=== PATIENT | male | born 1950 | race Caucasian/White ===

== ENCOUNTER 2017-09-01 17:11 | Inpatient (IN) | payer MEDICARE ==
[~2017-09-01] VITALS: Ht 170.2 cm; Wt 61.2 kg
[2017-09-01 17:17] VITALS: BP 197/123
[2017-09-01] MEDS: Albuterol ud Inhalation HHN SCH ×7 (17:29→20:56)
[2017-09-01] MEDS: Ipratropium 0.02% Inh Soln 2.5ml UD HHN SCH ×3 (17:29→18:01)
[2017-09-01] MEDS ORDERED: Azithromycin 500 MG in NS 275 ML IV ONE (17:30)
[2017-09-01] MEDS ORDERED: Solu-MEDROL 125mg Inj IVP ONE (17:30)
--- NOTE | 2017-09-01 17:30 | Emergency Room Report ---
History of Present Illness General Chief Complaint: Dyspnea/Respdistress Source: Patient Present Illness HPI 67-year-old male with history of COPD, former smoker, p/w SOB for 2 days. SOB occurs both at rest and on exertion. + productive cough with sputum, Denies chest pain. Patient has been using albuterol inhaler every 4 hours. With minimal relief Patient does not have nebulizer at home. No recent steroid use. Pt states that this episode is similar to other episodes of COPD exacerbation. Denies fever, chills. Denies sick contacts or recent travel. Patient denies history of ICU admissions, intubations States that the last time he went to the emergency room for a COPD exacerbation was one year ago Allergies: Coded Allergies: IODINE (Verified Allergy, Severe, ANAPHYLAXIS, 09/01/17) Patient History Past Medical History: see triage record Past Surgical History: none Pertinent Family History: none Reviewed Nursing Documentation: PMH: Agreed, PSxH: Agreed Review of Systems All Other Systems: negative except mentioned in HPI Physical Exam Vital Signs Date Time Temp Pulse Resp B/P (MAP) Pulse Ox O2 Delivery O2 Flow Rate FiO2 09/01/17 17:07 98.2 110 20 197/123 97 Room Air Sp02 EP Interpretation: reviewed, normal General Appearance: alert, GCS 15, non-toxic, moderate distress, other - sob but speaking in complete sentences Head: normocephalic, atraumatic Eyes: bilateral eye normal inspection, bilateral eye PERRL, bilateral eye EOMI ENT: normal ENT inspection, normal pharynx, normal voice, moist mucus membranes Neck: normal inspection, full range of motion, supple Respiratory: other - +insp and exp wheezing, tachypneic, Cardiovascular #1: normal inspection, regular rate, rhythm, no edema, normal capillary refill Cardiovascular #2: 2+ radial (R), 2+ radial (L) Gastrointestinal: normal inspection, non tender, soft, non-distended, no guarding Musculoskeletal: normal inspection, back normal, normal range of motion, non- tender Neurologic: normal inspection, alert, oriented x3, responsive, motor strength/ tone normal, sensory intact, normal gait, speech normal Psychiatric: normal inspection, judgement/insight normal, memory normal Skin: normal inspection, normal color, no rash, warm/dry, well hydrated, normal turgor Procedures Critical Care Time Critical Care Time 40 minutes of CC time 67-year-old male COPD exacerbation VS: Tachypnea Airway patent. PLAN: IV access, labs, lactate, troponin, meds, steroids, magnesium, consider BiPAP Anticipate admission to Tele vs. ERICA CC time also includes review of labs, review of EMR, discussion with family and paperwork from SNF, d/w hospitalist CC could include dosing of pressors, additional Abx CC time does not include procedures Medical Decision Making Diagnostic Impression: Primary Impression: COPD exacerbation Additional Impression: Respiratory distress ER Course 67-year-old male with pmhx of COPD p/w SOB for 2 days. DDX: COPD exacerbation, ACS, pneumonia Plan: IV access, cardiac cath lab manager, O2 nasal cannula, EKG, CXR obtain basic labs including blood gas, troponin Duonebs, steroids, consider mag Will consider BIPAP for persistent or worsening respiratory status ER Course: Patient's respiratory status has been closely monitored in the ED. Patient has been treated with combivent x 3, steroids, antibiotics. IV mag sulfate CXR reveals no acute infiltrate Repeat lung auscultation reveals persistent wheezing. Patent's remains tachypneic and hypoxic on room air. Disposition: Patient will be admitted to telemetry D/W hospitalist Dr Gore who has accepted patient for admission Please note that this Emergency Department Report was dictated using [employer] technology software, occasionally this can lead to erroneous entry secondary to interpretation by the dictation equipment. EKG Diagnostic Results EP Interpretation: Yes Rate: Tachycardic Rhythm: NSR ST Segments: Rightward axis, no acute ST-T changes ASA given to patient: no Rhythm Strip EP Interpretation: Yes Rate: 100 Rhythm: NSR, no PVCs, no ectopy Chest X-ray CXR: Ordered: Yes 1 view Indication: Shortness of breath EP interpretation: Yes Interpretation: Hyperinflated lungs, no infiltrate Impression: COPD Electronically signed by Jolynn Hayes MD Laboratory Tests Test 09/01/17 17:20 White Blood Count 8.3 K/UL (4.8-10.8) Red Blood Count 5.60 M/UL (4.70-6.10) Hemoglobin 16.5 G/DL (14.2-18.0) Hematocrit 52.1 % (42.0-52.0) H Mean Corpuscular Volume 93 FL (80-99) Mean Corpuscular Hemoglobin 29.4 PG (27.0-31.0) Mean Corpuscular Hemoglobin Concent 31.6 G/DL (32.0-36.0) L Red Cell Distribution Width 11.8 % (11.6-14.8) Platelet Count 164 K/UL (150-450) Mean Platelet Volume 9.3 FL (6.5-10.1) Neutrophils (%) (Auto) 80.5 % (45.0-75.0) H Lymphocytes (%) (Auto) 13.9 % (20.0-45.0) L Monocytes (%) (Auto) 4.7 % (1.0-10.0) Eosinophils (%) (Auto) 0.3 % (0.0-3.0) Basophils (%) (Auto) 0.7 % (0.0-2.0) Sodium Level 135 MMOL/L (136-145) L Potassium Level 3.6 MMOL/L (3.5-5.1) Chloride Level 98 MMOL/L (98-107) Carbon Dioxide Level 25 MMOL/L (21-32) Anion Gap 12 mmol/L (5-15) Blood Urea Nitrogen 10 mg/dL (7-18) Creatinine 1.1 MG/DL (0.55-1.30) Estimate Glomerular Filtration Rate > 60 mL/min (>60) Glucose Level 103 MG/DL (74-106) Lactic Acid Level 2.20 mmol/L (0.66-2.22) Calcium Level 9.3 MG/DL (8.5-10.1) Total Bilirubin 0.6 MG/DL (0.2-1.0) Aspartate Amino Transferase (AST) 26 U/L (15-37) Alanine Aminotransferase (ALT) 22 U/L (12-78) Alkaline Phosphatase 101 U/L (46-116) Troponin I 0.000 ng/mL (0.000-0.056) Pro-B-Type Natriuretic Peptide 182 pg/mL (0-125) H Total Protein 8.2 G/DL (6.4-8.2) Albumin 4.2 G/DL (3.4-5.0) Globulin 4.0 g/dL Albumin/Globulin Ratio 1.0 (1.0-2.7) Last Vital Signs Date Time Temp Pulse Resp B/P (MAP) Pulse Ox O2 Delivery O2 Flow Rate FiO2 12/18/17 17:07 98.2 110 20 197/123 97 Room Air Disposition: ADMITTED INPATIENT Condition: Serious Jolynn Hayes M.D. Sep 01, 2017 17:30
[2017-09-01 17:56] LABS: BASOPHILS % (AUTO) 0.7 % (0.0-2.0); EOSINOPHILS % (AUTO) 0.3 % (0.0-3.0); LYMPHOCYTES % (AUTO) 13.9 % (20.0-45.0); MEAN CORPUSCULAR HEMOGLOBIN 29.4 PG (27.0-31.0); MEAN CORPUSCULAR HGB CONC 31.6 G/DL (32.0-36.0); MEAN CORPUSCULAR VOLUME 93 FL (80-99); MEAN PLATELET VOLUME 9.3 FL (6.5-10.1); MONOCYTES % (AUTO) 4.7 % (1.0-10.0); NEUTROPHILS % (AUTO) 80.5 % (45.0-75.0); PLATELET COUNT 164 K/UL (150-450); RED CELL DISTRIBUTION WIDTH 11.8 % (11.6-14.8); WHITE BLOOD COUNT 8.3 K/UL (4.8-10.8)
[2017-09-01 18:00] LABS: ANION GAP 12 mmol/L (5-15); CALCIUM 9.3 MG/DL (8.5-10.1); CARBON DIOXIDE 25 MMOL/L (21-32); CHLORIDE 98 MMOL/L (98-107); CREATININE 1.1 MG/DL (0.55-1.30); GLOMERULAR FILTRATION RATE > 60 mL/min (>60); POTASSIUM 3.6 MMOL/L (3.5-5.1); SODIUM 135 MMOL/L (136-145)
[2017-09-01 18:16] LABS: REFLEX LACTIC ACID YES OR NO YES
[2017-09-01 18:23] LABS: ALANINE AMINOTRANSFERASE 22 U/L (12-78); ASPARTATE AMINO TRANSFERASE 26 U/L (15-37); TOTAL PROTEIN 8.2 G/DL (6.4-8.2)
[2017-09-01] MEDS ORDERED: Azithromycin 500mg Inj IV ONE (18:24)
[2017-09-01] MEDS ORDERED: NS 275 ML ONE (18:28)
[2017-09-01] MEDS ORDERED: ALBUTEROL2.5 MG/3 M INH (18:45)
[2017-09-01] MEDS ORDERED: ASPIR 8181 MG ORAL (19:09)
[2017-09-01 19:10] VITALS: BP 118/67
[2017-09-01 19:25] LABS: ABG PCO2 37.1 mmHg (35.0-45.0)
[2017-09-01 19:26] LABS: ABG ALLEN TEST POSITIVE; ABG BASE EXCESS -3.5
[2017-09-01 20:32] LABS: APPEARANCE,URINE CLEAR; KETONES,URINE 4+ (NEGATIVE); LEUKOCYTE ESTERASE ,URINE NEGATIVE (NEGATIVE); NITRITE,URINE NEGATIVE (NEGATIVE); PH,URINE 5 (4.5-8.0); PROTEIN,URINE 2+ (NEGATIVE); UROBILINOGEN,URINE NORMAL MG/DL (0.0-1.0)
[2017-09-01 20:50] LABS: BACTERIA,URINE FEW /HPF; WBC,URINE 0-2 /HPF (0 - 0)
[2017-09-01 21:27] VITALS: BP 116/69
[2017-09-01] MEDS ORDERED: Zolpidem 5mg tab ORAL PRN (22:00)
[2017-09-01] MEDS ORDERED: Milk of Magnesia 30ml Ud ORAL PRN (22:00)
[2017-09-01] MEDS ORDERED: Morphine Sulfate 4mg/ml Inj IVP PRN (22:00)
[2017-09-01 22:30] VITALS: BP 121/74
[2017-09-02] VITALS: BP_SYST 137; BP_SYST 152; BP_DIAS 73; BP_DIAS 92
[2017-09-02] MEDS: cefTRIAXone 1 GM in D5W 55 ML IV SCH ×2 (01:56→23:31)
[2017-09-02] MEDS: Albuterol/Ipratropium 3ml neb HHN SCH ×7 (02:30→23:43)
[2017-09-02 04:00] VITALS: BP 130/86
[2017-09-02] MEDS ORDERED: Solu-MEDROL 125mg Inj IVP SCH (05:00)
[2017-09-02 08:00] VITALS: BP 144/81
[2017-09-02] MEDS: Aspirin EC 81mg tab ORAL SCH (08:53)
--- NOTE | 2017-09-02 10:54 | History & Physical ---
History and Physical History & Physicial HP dictated # [id number] BEE CONSTANTINO Sep 02, 2017 10:54
[2017-09-02 12:00] VITALS: BP 135/82
[2017-09-02] MEDS: Solu-MEDROL 125mg Inj IVP SCH ×2 (12:09→23:31)
[2017-09-02 16:00] VITALS: BP 135/80
--- NOTE | 2017-09-02 16:15 | History and Physical Report ---
DATE OF ADMISSION: 09/01/2017 CHIEF COMPLAINT: Shortness of breath, cough, and sputum production. HISTORY OF PRESENT ILLNESS: This is a 67-year-old very pleasant white male with history of COPD/emphysema. The patient has long history of smoking. He used to smoke up until 6 months ago, one pack per day and he was smoking for about 50 years. He has usually dyspnea on exertion, however, over the past three days, his shortness of breath has become more. He had also productive cough with sputum and he finally came to the emergency room. The patient was admitted with diagnosis of COPD exacerbation. PAST MEDICAL HISTORY: Negative except what was mentioned, specifically there is no history of diabetes. He has history of hypertension and he denies history of heart disease and GI disease. SOCIAL HISTORY: The patient lives by himself. 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 He denies history of alcohol abuse. Previous history of smoking. ALLERGIES: Shellfish and iodine contrast. REVIEW OF SYSTEMS: As above. PHYSICAL EXAMINATION: GENERAL: The patient is a 67-year-old male, in no acute distress. He is comfortable on O2 via nasal cannula. VITAL SIGNS: Blood pressure is 144/81, pulse 84, and respiratory rate is 20. The patient's temperature is 97.2. HEENT: Deary conjunctivae. Anicteric sclerae. NECK: Supple. LUNGS: Coarse breath sounds bilaterally. I could not appreciate any expiratory wheezing. HEART: S1, S2 without murmurs or rubs. ABDOMEN: Soft, nontender. EXTREMITIES: No cyanosis or edema. LABORATORY FINDINGS: The chemistry panel shows serum sodium 135, potassium 3.6, chloride 98, CO2 25, BUN is 10, creatinine 1.1. CBC shows WBC of 10,300, hematocrit is 52.1, hemoglobin 16.5, platelets 164,000. UA shows 2+ protein. ASSESSMENT: This is a 67-year-old white male who is admitted with chronic obstructive pulmonary disease exacerbation. The patient has also elevated blood pressure, however, his blood pressure is better now. PLAN: The patient will be on bronchodilators, IV steroids, IV antibiotics. Pulmonary consultation will be obtained and adjustment will be made in the patient's regimen. Roney Gore M.D. DR: Tal JOB#: [id number] CC: TAWANA
--- NOTE | 2017-09-02 17:24 | Diagnostic Imaging Report ---
Clinical Indication: Reason For Exam: COPD Technique: Spiral acquisitions obtained through the chest. No IV contrast utilized, referring physician request and due to patient iodine allergy. Multiplanar reconstructions generated. Total dose length product 554.58 mGycm. CTDIvol(s) 14.25 mGy. Dose reduction achieved using automated exposure control Comparison: none Findings: There is generalized pulmonary hyperinflation, consistent with COPD. There is atelectasis and/or scarring at the right lung base. No acute infiltrates, effusions, congestion, masses, or nodules demonstrated. No mediastinal or hilar mass or adenopathy. There are calcified granulomatous right hilar and mediastinal lymph nodes. The heart size is normal. No pericardial effusion. Granulomas calcifications are seen within the liver and spleen. The bones are unremarkable except for degenerative spondylosis changes Impression: COPD changes Right basilar scarring No acute abnormality Evidence old granulomatous disease in the right pulmonary hilum, liver, and spleen The CT scanner at [facility] is accredited by the [employer] and the scans are performed using protocols designed to limit radiation exposure to as low as reasonably achievable to attain images of sufficient resolution adequate for diagnostic evaluation.
--- NOTE | 2017-09-02 17:24 | Diagnostic Imaging Report ---
Indication: Reason For Exam: SOB, asthma Technique: One view of the chest Comparison: none Findings: Lungs are hyperinflated, as in COPD. Lungs and pleural spaces are clear. The heart size is normal. Impression: Evidence of COPD No acute process
[2017-09-02] MEDS ORDERED: Azithromycin 500 MG in D5W 275 ML IV SCH (18:00)
--- NOTE | 2017-09-02 18:15 | Cardiology Report ---
APPROVED REPORT EKG Measurement Heart [id number] NC [id number] [id number] Sinus tachycardia Possible Left atrial enlargement Rightward axis Pulmonary disease pattern Septal infarct, age undetermined Abnormal ECG
[2017-09-02 20:00] VITALS: BP 115/62
--- NOTE | 2017-09-02 20:15 | Consultation ---
DATE OF CONSULTATION: 09/02/2017 PULMONARY CONSULTATION CONSULTING PHYSICIAN: Tahir Liriano M.D. HISTORY OF PRESENT ILLNESS: The patient is a pleasant 67-year-old man, who comes to the hospital through the emergency department from home because of several days of increasing shortness of breath. He reports that he has longstanding asthma and COPD. He was a cigarette smoker, but quit about six months ago. He has had similar flare-ups of COPD in the past. He has been using his inhaler frequently without improvement. He is coughing up some dark sputum and a few days ago coughed up a small amount of blood. PAST MEDICAL HISTORY: COPD and hypertension. He denies any heart disease or gastrointestinal problems. ALLERGIES: Contrast dye, iodine, and shell fish. REVIEW OF SYSTEMS: Otherwise unremarkable. PHYSICAL EXAMINATION: GENERAL: The patient is alert and coughing. VITAL SIGNS: Stable with blood pressure 144/81, yesterday's pressure was as high as 197/123 and as low as 116/69, heart rate was elevated when he presented, but has improved at this time and he is not in distress. HEENT: Head is normocephalic. NECK: No jugular venous distention. CHEST: Decreased air entry and expiratory wheezing. CARDIAC: Rhythm is regular. ABDOMEN: Soft and nontender. Liver and spleen not enlarged. EXTREMITIES: No clubbing, cyanosis, or edema. DIAGNOSTIC DATA: Imaging is not available for review, but reportedly was clear. IMPRESSION: 1. Chronic obstructive pulmonary disease exacerbation. 2. Hypertension. 3. Hemoptysis. PLAN: The patient will be treated with steroids, antibiotics, and nebulizer treatments. We will get a CT scan of the chest without contrast due to his allergies. Thank you for asking me to see him in consultation. Tahir Liriano M.D. : JOVAN JOB#: [id number] CC: Roney Gore M.D.; Fax#: [phone]
[2017-09-03] VITALS: BP_SYST 115; BP_SYST 122; BP_DIAS 62; BP_DIAS 74
[2017-09-03] MEDS: Albuterol/Ipratropium 3ml neb HHN SCH ×7 (03:00→23:51)
[2017-09-03 04:00] VITALS: BP 125/76
[2017-09-03] MEDS: Solu-MEDROL 125mg Inj IVP SCH ×2 (06:47→14:16)
[2017-09-03 08:00] VITALS: BP 122/70
[2017-09-03] MEDS: Aspirin EC 81mg tab ORAL SCH (08:49)
--- NOTE | 2017-09-03 11:46 | General Progress Note ---
Assessment/Plan Problem List: (1) Acute respiratory failure with hypoxemia ICD Codes: J96.01 - Acute respiratory failure with hypoxia SNOMED: 906874828 (2) COPD exacerbation ICD Codes: J44.1 - Chronic obstructive pulmonary disease with (acute) exacerbation SNOMED: 475660139477898 (3) HTN (hypertension) ICD Codes: I10 - Essential (primary) hypertension SNOMED: 34573618 Status Narrative stable Assessment/Plan Bronchodilators IV sterids abxs Transfer to floor Subjective Allergies: Coded Allergies: IODINE (Verified Allergy, Severe, ANAPHYLAXIS, 09/01/17) SHELLFISH DERIVED (Verified Allergy, Severe, Anaphylaxis, 09/01/17) Uncoded Allergies: Contrast Dye (Adverse Reaction, Severe, Anaphylaxis, 09/01/17) Subjective In NAD Objective Last 24 Hour Vital Signs Date Time Temp Pulse Resp B/P (MAP) Pulse Ox O2 Delivery O2 Flow Rate FiO2 09/03/17 11:04 93 18 97 Nasal Cannula 2.0 09/03/17 10:54 92 18 97 Nasal Cannula 2.0 28 09/03/17 07:59 89 20 99 Nasal Cannula 2.0 28 09/03/17 07:48 87 16 94 Nasal Cannula 2.0 28 09/03/17 07:48 94 Nasal Cannula 2.0 28 09/03/17 07:48 Nasal Cannula 2.0 28 09/03/17 05:05 94 18 98 Nasal Cannula 2.0 09/03/17 05:00 93 20 96 Nasal Cannula 2.0 28 09/03/17 04:00 97.3 76 20 125/76 98 Nasal Cannula 09/03/17 04:00 63 09/03/17 03:28 Nasal Cannula 2.0 09/03/17 03:28 Nasal Cannula 2.0 28 09/03/17 00:31 105 09/03/17 00:00 97.7 85 20 122/74 95 Nasal Cannula 09/03/17 00:00 100 09/02/17 23:14 105 20 95 Nasal Cannula 2.0 28 09/02/17 23:00 115 22 93 Nasal Cannula 2.0 28 09/02/17 20:00 98.1 82 20 115/62 94 09/02/17 19:08 101 18 99 Nasal Cannula 2.0 28 09/02/17 19:00 94 Nasal Cannula 2.0 28 09/02/17 19:00 103 18 94 Nasal Cannula 2.0 28 09/02/17 19:00 Nasal Cannula 2.0 28 09/02/17 16:00 95 09/02/17 16:00 97.8 96 18 135/80 96 Nasal Cannula 2.0 09/02/17 15:58 105 20 100 Nasal Cannula 2.0 28 09/02/17 15:50 102 20 98 Nasal Cannula 2.0 28 09/02/17 12:00 97.9 84 18 135/82 96 Nasal Cannula 2.0 09/02/17 12:00 79 09/02/17 11:54 99 20 100 Nasal Cannula 2.0 28 09/02/17 11:44 100 20 98 Nasal Cannula 2.0 28 Intake and Output 09/03/17 09/04/17 19:00 07:00 Intake Total 120 ml Balance 120 ml Intake Oral 120 ml Height (Feet): 5 Height (Inches): 7.00 Weight (Pounds): 135 Cardiovascular: normal rate Respiratory/Chest: lungs clear Edema: no edema noted Generalized BEE CONSTANTINO Sep 03, 2017 11:46
[2017-09-03 12:00] VITALS: BP 132/78
[2017-09-03 16:00] VITALS: BP 130/78
[2017-09-03] MEDS ORDERED: Morphine Sulfate 4mg/ml Inj IVP PRN (18:00)
--- NOTE | 2017-09-03 18:10 | Pulmonology Progress Note ---
Assessment/Plan Assessment/Plan 1. Chronic obstructive pulmonary disease exacerbation. 2. Hypertension. 3. Hemoptysis. CT chest neg doing better taper steroids will follow Subjective Constitutional: Denies: fever Respiratory: Reports: dry cough, shortness of breath - better, Denies: hemoptysis Allergies: Coded Allergies: IODINE (Verified Allergy, Severe, ANAPHYLAXIS, 09/01/17) SHELLFISH DERIVED (Verified Allergy, Severe, Anaphylaxis, 09/01/17) Uncoded Allergies: Contrast Dye (Adverse Reaction, Severe, Anaphylaxis, 09/01/17) Objective Last 24 Hour Vital Signs Date Time Temp Pulse Resp B/P (MAP) Pulse Ox O2 Delivery O2 Flow Rate FiO2 09/03/17 16:00 98.2 105 18 130/78 95 Nasal Cannula 09/03/17 14:50 87 18 99 Nasal Cannula 2.0 28 09/03/17 14:44 86 20 95 Nasal Cannula 2.0 28 09/03/17 12:00 98 09/03/17 12:00 97.9 110 18 132/78 95 Nasal Cannula 2.0 09/03/17 11:04 93 18 97 Nasal Cannula 2.0 09/03/17 10:54 92 18 97 Nasal Cannula 2.0 09/03/17 08:00 97 09/03/17 08:00 97.3 95 18 122/70 95 Nasal Cannula 09/03/17 08:00 91 09/03/17 07:59 89 20 99 Nasal Cannula 2.0 09/03/17 07:48 87 16 94 Nasal Cannula 2.0 09/03/17 07:48 94 Nasal Cannula 2.0 09/03/17 07:48 Nasal Cannula 2.0 09/03/17 05:05 94 18 98 Nasal Cannula 2.0 09/03/17 05:00 93 20 96 Nasal Cannula 2.0 28 09/03/17 04:00 97.3 76 20 125/76 98 Nasal Cannula 09/03/17 04:00 63 09/03/17 03:28 Nasal Cannula 2.0 28 09/03/17 03:28 Nasal Cannula 2.0 28 09/03/17 00:31 105 09/03/17 00:00 97.7 85 20 122/74 95 Nasal Cannula 09/03/17 00:00 100 09/02/17 23:14 105 20 95 Nasal Cannula 2.0 28 09/02/17 23:00 115 22 93 Nasal Cannula 2.0 28 09/02/17 20:00 98.1 82 20 115/62 94 09/02/17 19:08 101 18 99 Nasal Cannula 2.0 28 09/02/17 19:00 94 Nasal Cannula 2.0 28 09/02/17 19:00 103 18 94 Nasal Cannula 2.0 28 09/02/17 19:00 Nasal Cannula 2.0 28 Intake and Output 09/02/17 09/03/17 19:00 07:00 Intake Total 1235 ml 400 ml Output Total 1000 ml 275 ml Balance 235 ml 125 ml Intake Oral 960 ml 400 ml IV Total 275 ml Output Urine Total 1000 ml 275 ml # Voids 1 General Appearance: no acute distress HEENT: atraumatic Respiratory/Chest: lungs clear, decreased breath sounds Cardiovascular: normal rate Microbiology Date/Time Source Procedure Growth Status 09/01/17 17:35 Blood Blood Culture - Preliminary NO GROWTH AFTER 24 HOURS Resulted 09/01/17 17:20 Blood Blood Culture - Preliminary NO GROWTH AFTER 24 HOURS Resulted Current Medications Medications (Trade) Dose Ordered Sig/Heydi Route PRN Reason Start Time Stop Time Status Last Admin Dose Admin Acetaminophen (Tylenol) 650 mg Q4H PRN ORAL Mild Pain (Pain Scale 1-3) 09/03/17 18:00 10/01/17 21:59 Albuterol/ Ipratropium (Albuterol/ Ipratropium) 3 ml Q4HRT HHN 09/03/17 19:00 09/07/17 10:59 Aspirin (Ecotrin) 81 mg DAILY ORAL 09/04/17 09:00 10/02/17 08:59 Azithromycin 500 mg/Dextrose 275 ml @ 275 mls/hr Q24H IV 09/03/17 18:00 09/09/17 17:59 Ceftriaxone Sodium 1 gm/ Dextrose 55 ml @ 110 mls/hr Q24H IV 09/03/17 23:00 09/08/17 22:59 Magnesium Hydroxide (Mom) 30 ml HSPRN PRN ORAL Constipation 09/03/17 22:00 10/01/17 21:59 Methylprednisolone Sodium Succinate (Solu-MEDROL) 60 mg Q8HR IVP 09/03/17 22:00 10/02/17 12:59 Morphine Sulfate (Morphine Sulfate) 4 mg Q4H PRN IVP Severe Pain (Pain Scale 7-10) 09/03/17 18:00 09/08/17 21:59 Ondansetron HCl (Zofran) 4 mg Q6H PRN IVP Nausea & Vomiting 09/03/17 16:00 10/01/17 21:59 Ranitidine HCl (Zantac) 150 mg TWICE A DAY ORAL 09/03/17 18:00 10/01/17 21:59 Zolpidem Tartrate (Ambien) 10 mg HSPRN PRN ORAL Insomnia 09/03/17 22:00 09/08/17 21:59 LAKEISHA MARADIAGA Sep 03, 2017 18:10
[2017-09-03] MEDS: Azithromycin 500 MG in D5W 275 ML IV SCH (18:30)
[2017-09-03 20:00] VITALS: BP 143/96
[2017-09-03] MEDS ORDERED: Zolpidem 5mg tab ORAL PRN (22:00)
[2017-09-03] MEDS ORDERED: Milk of Magnesia 30ml Ud ORAL PRN (22:00)
[2017-09-03] MEDS ORDERED: Solu-MEDROL 125mg Inj IVP SCH (22:00)
[2017-09-03] MEDS: Solu-MEDROL 40mg Inj IVP SCH (22:20)
[2017-09-03] MEDS: cefTRIAXone 1 GM in D5W 55 ML IV SCH (22:20)
[2017-09-04] VITALS: BP 128/65
[2017-09-04] MEDS: Albuterol/Ipratropium 3ml neb HHN SCH ×6 (03:33→23:11)
[2017-09-04 04:00] VITALS: BP 138/83
[2017-09-04 08:00] VITALS: BP 135/86
[2017-09-04] MEDS: Aspirin EC 81mg tab ORAL SCH (09:33)
[2017-09-04] MEDS: Solu-MEDROL 40mg Inj IVP SCH (09:47)
[2017-09-04 12:00] VITALS: BP 160/80
--- NOTE | 2017-09-04 14:28 | General Progress Note ---
Assessment/Plan Problem List: (1) Acute respiratory failure with hypoxemia ICD Codes: J96.01 - Acute respiratory failure with hypoxia SNOMED: 255644700 (2) COPD exacerbation ICD Codes: J44.1 - Chronic obstructive pulmonary disease with (acute) exacerbation SNOMED: 845471119267862 (3) HTN (hypertension) ICD Codes: I10 - Essential (primary) hypertension SNOMED: 55205544 Assessment/Plan Bronchodilators IV sterids abxs start Amlodipine Subjective Allergies: Coded Allergies: IODINE (Verified Allergy, Severe, ANAPHYLAXIS, 09/01/17) SHELLFISH DERIVED (Verified Allergy, Severe, Anaphylaxis, 09/01/17) Uncoded Allergies: Contrast Dye (Adverse Reaction, Severe, Anaphylaxis, 09/01/17) Subjective In NAD Objective Last 24 Hour Vital Signs Date Time Temp Pulse Resp B/P (MAP) Pulse Ox O2 Delivery O2 Flow Rate FiO2 09/04/17 13:29 88 18 98 Room Air 09/04/17 12:00 98.3 75 20 160/80 98 09/04/17 11:12 79 17 95 Room Air 2.0 28 09/04/17 08:00 97.3 95 19 135/86 92 09/04/17 07:48 86 18 99 Room Air 09/04/17 07:41 Nasal Cannula 2.0 28 09/04/17 07:41 95 Nasal Cannula 2.0 28 09/04/17 07:38 77 17 95 Room Air 2.0 28 09/04/17 04:01 Room Air 09/04/17 04:00 97.5 81 18 138/83 97 09/04/17 03:44 83 18 98 Room Air 09/04/17 03:33 81 18 93 Room Air 09/04/17 00:01 Room Air 09/04/17 00:00 97.5 76 19 128/65 93 09/03/17 23:58 77 18 99 Room Air 09/03/17 23:51 72 18 93 Room Air 09/03/17 21:42 87 18 98 Room Air 09/03/17 21:32 Nasal Cannula 2.0 28 09/03/17 21:32 94 Nasal Cannula 2.0 28 09/03/17 21:31 81 20 94 Nasal Cannula 2.0 28 09/03/17 20:01 Room Air 09/03/17 20:00 97.2 87 18 143/96 95 09/03/17 16:00 98.2 105 18 130/78 95 Nasal Cannula 09/03/17 14:50 87 18 99 Nasal Cannula 2.0 28 09/03/17 14:44 86 20 95 Nasal Cannula 2.0 28 Intake and Output 09/03/17 09/04/17 19:00 07:00 Intake Total 660 ml 55 ml Output Total 430 ml 500 ml Balance 230 ml -445 ml Intake Oral 660 ml IV Total 55 ml Output Urine Total 430 ml 500 ml # Voids 3 Height (Feet): 5 Height (Inches): 7.00 Weight (Pounds): 135 Cardiovascular: normal rate Respiratory/Chest: lungs clear Edema: no edema noted Generalized BEE CONSTANTINO Sep 04, 2017 14:28
[2017-09-04 16:00] VITALS: BP 158/87
--- NOTE | 2017-09-04 16:12 | Pulmonology Progress Note ---
Assessment/Plan Assessment/Plan 1. Chronic obstructive pulmonary disease exacerbation. 2. Hypertension. 3. Hemoptysis. BP high likely due to steroids taper steroids, change to PO BP rx improving Subjective Respiratory: Reports: productive cough Allergies: Coded Allergies: IODINE (Verified Allergy, Severe, ANAPHYLAXIS, 09/01/17) SHELLFISH DERIVED (Verified Allergy, Severe, Anaphylaxis, 09/01/17) Uncoded Allergies: Contrast Dye (Adverse Reaction, Severe, Anaphylaxis, 09/01/17) Objective Last 24 Hour Vital Signs Date Time Temp Pulse Resp B/P (MAP) Pulse Ox O2 Delivery O2 Flow Rate FiO2 09/04/17 15:04 105 160/80 09/04/17 14:43 105 18 99 Room Air 09/04/17 14:35 72 18 96 21 09/04/17 13:29 88 18 98 Room Air 09/04/17 12:00 98.3 75 20 160/80 98 09/04/17 11:12 79 17 95 Room Air 2.0 28 09/04/17 08:00 97.3 95 19 135/86 92 09/04/17 07:48 86 18 99 Room Air 09/04/17 07:41 Nasal Cannula 2.0 28 09/04/17 07:41 95 Nasal Cannula 2.0 28 09/04/17 07:38 77 17 95 Room Air 2.0 28 09/04/17 04:01 Room Air 09/04/17 04:00 97.5 81 18 138/83 97 09/04/17 03:44 83 18 98 Room Air 09/04/17 03:33 81 18 93 Room Air 09/04/17 00:01 Room Air 09/04/17 00:00 97.5 76 19 128/65 93 09/03/17 23:58 77 18 99 Room Air 09/03/17 23:51 72 18 93 Room Air 09/03/17 21:42 87 18 98 Room Air 09/03/17 21:32 Nasal Cannula 2.0 28 09/03/17 21:32 94 Nasal Cannula 2.0 28 09/03/17 21:31 81 20 94 Nasal Cannula 2.0 28 09/03/17 20:01 Room Air 09/03/17 20:00 97.2 87 18 143/96 95 Intake and Output 09/03/17 09/04/17 19:00 07:00 Intake Total 660 ml 55 ml Output Total 430 ml 500 ml Balance 230 ml -445 ml Intake Oral 660 ml IV Total 55 ml Output Urine Total 430 ml 500 ml # Voids 3 General Appearance: no acute distress HEENT: atraumatic Respiratory/Chest: rhonchi Cardiovascular: normal rate Microbiology Date/Time Source Procedure Growth Status 09/01/17 17:35 Blood Blood Culture - Preliminary NO GROWTH AFTER 48 HOURS Resulted 09/01/17 17:20 Blood Blood Culture - Preliminary NO GROWTH AFTER 48 HOURS Resulted Current Medications Medications (Trade) Dose Ordered Sig/Heydi Route PRN Reason Start Time Stop Time Status Last Admin Dose Admin Acetaminophen (Tylenol) 650 mg Q4H PRN ORAL Mild Pain (Pain Scale 1-3) 09/03/17 18:00 10/01/17 21:59 Albuterol/ Ipratropium (Albuterol/ Ipratropium) 3 ml Q4HRT HHN 09/03/17 19:00 09/07/17 10:59 09/04/17 14:35 Amlodipine Besylate (Norvasc) 5 mg DAILY ORAL 09/04/17 15:00 10/04/17 14:59 09/04/17 15:04 Aspirin (Ecotrin) 81 mg DAILY ORAL 09/04/17 09:00 10/02/17 08:59 09/04/17 09:33 Azithromycin 500 mg/Dextrose 275 ml @ 275 mls/hr Q24H IV 09/03/17 18:00 09/09/17 17:59 09/03/17 18:30 Ceftriaxone Sodium 1 gm/ Dextrose 55 ml @ 110 mls/hr Q24H IV 09/03/17 23:00 09/08/17 22:59 09/03/17 22:20 Magnesium Hydroxide (Mom) 30 ml HSPRN PRN ORAL Constipation 09/03/17 22:00 10/01/17 21:59 Methylprednisolone Sodium Succinate (Solu-MEDROL) 40 mg Q12H IVP 09/03/17 22:00 10/02/17 12:59 09/04/17 09:47 Morphine Sulfate (Morphine Sulfate) 4 mg Q4H PRN IVP Severe Pain (Pain Scale 7-10) 09/03/17 18:00 09/08/17 21:59 Ondansetron HCl (Zofran) 4 mg Q6H PRN IVP Nausea & Vomiting 09/03/17 16:00 10/01/17 21:59 Ranitidine HCl (Zantac) 150 mg TWICE A DAY ORAL 09/03/17 18:00 10/01/17 21:59 09/04/17 09:33 Zolpidem Tartrate (Ambien) 10 mg HSPRN PRN ORAL Insomnia 09/03/17 22:00 09/08/17 21:59 LAKEISHA MARADIAGA Sep 04, 2017 16:12
[2017-09-04] MEDS ORDERED: Tubing IV Secondary IV ONE (16:18)
[2017-09-04] MEDS ORDERED: D5W 275ml ONE (16:18)
[2017-09-04] MEDS: Azithromycin 500 MG in D5W 275 ML IV SCH (19:04)
[2017-09-04 20:00] VITALS: BP 151/82
[2017-09-04] MEDS: cefTRIAXone 1 GM in D5W 55 ML IV SCH (23:01)
[2017-09-05] VITALS: BP 162/92
[2017-09-05] MEDS: Albuterol/Ipratropium 3ml neb HHN SCH ×6 (02:56→23:37)
[2017-09-05 08:00] VITALS: BP 159/96
[2017-09-05] MEDS: Aspirin EC 81mg tab ORAL SCH (08:38)
--- NOTE | 2017-09-05 09:38 | Pulmonology Progress Note ---
Assessment/Plan Assessment/Plan 1. Chronic obstructive pulmonary disease exacerbation. 2. Hypertension. 3. Hemoptysis. BP high likely due to steroids PO steroids BP rx per Dr Dong improving dc plan Subjective ROS Limited/Unobtainable: Yes Constitutional: Denies: fever Respiratory: Reports: dry cough Allergies: Coded Allergies: IODINE (Verified Allergy, Severe, ANAPHYLAXIS, 09/01/17) SHELLFISH DERIVED (Verified Allergy, Severe, Anaphylaxis, 09/01/17) Uncoded Allergies: Contrast Dye (Adverse Reaction, Severe, Anaphylaxis, 09/01/17) Objective Last 24 Hour Vital Signs Date Time Temp Pulse Resp B/P (MAP) Pulse Ox O2 Delivery O2 Flow Rate FiO2 09/05/17 08:38 98 159/96 09/05/17 08:00 98.0 98 19 159/96 97 09/05/17 07:19 91 20 92 Room Air 09/05/17 07:07 Nasal Cannula 2.0 28 09/05/17 07:06 91 Nasal Cannula 2.0 28 09/05/17 07:06 89 20 91 Nasal Cannula 2.0 28 09/05/17 03:03 97 18 100 Room Air 09/05/17 02:56 92 24 94 Nasal Cannula 2.0 28 09/05/17 00:00 97.6 91 18 162/92 93 Room Air 09/04/17 23:21 94 18 100 Room Air 09/04/17 23:11 87 24 96 Nasal Cannula 2.0 28 09/04/17 20:14 102 18 99 Room Air 09/04/17 20:00 98.9 84 18 151/82 93 Nasal Cannula 2.0 09/04/17 19:50 93 Nasal Cannula 2.0 28 09/04/17 19:50 Nasal Cannula 2.0 28 09/04/17 19:50 96 24 93 Nasal Cannula 2.0 28 09/04/17 16:00 97.7 94 19 158/87 92 09/04/17 15:04 105 160/80 09/04/17 14:43 105 18 99 Room Air 09/04/17 14:35 72 18 96 21 09/04/17 13:29 88 18 98 Room Air 09/04/17 12:00 98.3 75 20 160/80 98 09/04/17 11:12 79 17 95 Room Air 2.0 28 Intake and Output 09/04/17 09/05/17 19:00 07:00 Intake Total 850 ml 875 ml Balance 850 ml 875 ml Intake Oral 850 ml 600 ml IV Total 275 ml # Voids 4 3 General Appearance: no acute distress HEENT: atraumatic, anicteric Respiratory/Chest: rhonchi Cardiovascular: normal rate Current Medications Medications (Trade) Dose Ordered Sig/Heydi Route PRN Reason Start Time Stop Time Status Last Admin Dose Admin Acetaminophen (Tylenol) 650 mg Q4H PRN ORAL Mild Pain (Pain Scale 1-3) 09/03/17 18:00 10/01/17 21:59 Albuterol/ Ipratropium (Albuterol/ Ipratropium) 3 ml Q4HRT HHN 09/03/17 19:00 09/07/17 10:59 09/05/17 07:04 Amlodipine Besylate (Norvasc) 5 mg DAILY ORAL 09/04/17 15:00 10/04/17 14:59 09/05/17 08:38 Aspirin (Ecotrin) 81 mg DAILY ORAL 09/04/17 09:00 10/02/17 08:59 09/05/17 08:38 Azithromycin 500 mg/Dextrose 275 ml @ 275 mls/hr Q24H IV 09/03/17 18:00 09/09/17 17:59 09/04/17 19:04 Ceftriaxone Sodium 1 gm/ Dextrose 55 ml @ 110 mls/hr Q24H IV 09/03/17 23:00 09/08/17 22:59 09/04/17 23:01 Magnesium Hydroxide (Mom) 30 ml HSPRN PRN ORAL Constipation 09/03/17 22:00 10/01/17 21:59 Morphine Sulfate (Morphine Sulfate) 4 mg Q4H PRN IVP Severe Pain (Pain Scale 7-10) 09/03/17 18:00 09/08/17 21:59 Ondansetron HCl (Zofran) 4 mg Q6H PRN IVP Nausea & Vomiting 09/03/17 16:00 10/01/17 21:59 Prednisone (predniSONE) 20 mg Q12HR ORAL 09/04/17 21:00 10/04/17 20:59 09/05/17 08:38 Ranitidine HCl (Zantac) 150 mg TWICE A DAY ORAL 09/03/17 18:00 10/01/17 21:59 09/05/17 08:38 Zolpidem Tartrate (Ambien) 10 mg HSPRN PRN ORAL Insomnia 09/03/17 22:00 09/08/17 21:59 LAKEISHA MARADIAGA Sep 05, 2017 09:38
--- NOTE | 2017-09-05 11:21 | General Progress Note ---
Assessment/Plan Problem List: (1) Acute respiratory failure with hypoxemia ICD Codes: J96.01 - Acute respiratory failure with hypoxia SNOMED: 868132447 (2) COPD exacerbation ICD Codes: J44.1 - Chronic obstructive pulmonary disease with (acute) exacerbation SNOMED: 196290743998259 (3) HTN (hypertension) ICD Codes: I10 - Essential (primary) hypertension SNOMED: 86804302 Assessment/Plan Bronchodilators IV sterids abxs Increase Amlodipine discussed with RN Subjective Allergies: Coded Allergies: IODINE (Verified Allergy, Severe, ANAPHYLAXIS, 09/01/17) SHELLFISH DERIVED (Verified Allergy, Severe, Anaphylaxis, 09/01/17) Uncoded Allergies: Contrast Dye (Adverse Reaction, Severe, Anaphylaxis, 09/01/17) Subjective C/O BELCHER Objective Last 24 Hour Vital Signs Date Time Temp Pulse Resp B/P (MAP) Pulse Ox O2 Delivery O2 Flow Rate FiO2 09/05/17 10:56 98 18 96 Room Air 09/05/17 10:47 94 20 93 Room Air 09/05/17 10:15 94 159/96 09/05/17 08:38 98 159/96 09/05/17 08:00 98.0 98 19 159/96 97 09/05/17 07:19 91 20 92 Room Air 09/05/17 07:07 Nasal Cannula 2.0 09/05/17 07:06 91 Nasal Cannula 2.0 09/05/17 07:06 89 20 91 Nasal Cannula 2.0 09/05/17 03:03 97 18 100 Room Air 09/05/17 02:56 92 24 94 Nasal Cannula 2.0 09/05/17 00:00 97.6 91 18 162/92 93 Room Air 09/04/17 23:21 94 18 100 Room Air 09/04/17 23:11 87 24 96 Nasal Cannula 2.0 09/04/17 20:14 102 18 99 Room Air 09/04/17 20:00 98.9 84 18 151/82 93 Nasal Cannula 2.0 09/04/17 19:50 93 Nasal Cannula 2.0 09/04/17 19:50 Nasal Cannula 2.0 09/04/17 19:50 96 24 93 Nasal Cannula 2.0 09/04/17 16:00 97.7 94 19 158/87 92 09/04/17 15:04 105 160/80 09/04/17 14:43 105 18 99 Room Air 09/04/17 14:35 72 18 96 21 09/04/17 13:29 88 18 98 Room Air 09/04/17 12:00 98.3 75 20 160/80 98 Intake and Output 09/04/17 09/05/17 19:00 07:00 Intake Total 850 ml 875 ml Balance 850 ml 875 ml Intake Oral 850 ml 600 ml IV Total 275 ml # Voids 4 3 Height (Feet): 5 Height (Inches): 7.00 Weight (Pounds): 135 Cardiovascular: normal rate Respiratory/Chest: expiratory wheezing Edema: no edema noted Generalized BEE CONSTANTINO Sep 05, 2017 11:21
[2017-09-05 12:00] VITALS: BP 148/94
[2017-09-05 16:00] VITALS: BP 142/80
[2017-09-05] MEDS ORDERED: Tubing IV Secondary IV ONE (17:16)
[2017-09-05] MEDS: Azithromycin 500 MG in D5W 275 ML IV SCH (17:19)
[2017-09-05 20:00] VITALS: BP 165/89
[2017-09-05] MEDS: cefTRIAXone 1 GM in D5W 55 ML IV SCH (23:15)
[2017-09-06] MEDS: Albuterol/Ipratropium 3ml neb HHN SCH ×6 (03:06→23:40)
[2017-09-06 04:00] VITALS: BP 130/79
[2017-09-06 09:00] VITALS: BP 141/80
[2017-09-06] MEDS: Aspirin EC 81mg tab ORAL SCH (09:03)
[2017-09-06 12:00] VITALS: BP 130/86
--- NOTE | 2017-09-06 14:13 | General Progress Note ---
Assessment/Plan Problem List: (1) Acute respiratory failure with hypoxemia ICD Codes: J96.01 - Acute respiratory failure with hypoxia SNOMED: 681511593 (2) COPD exacerbation ICD Codes: J44.1 - Chronic obstructive pulmonary disease with (acute) exacerbation SNOMED: 907438157982196 (3) HTN (hypertension) ICD Codes: I10 - Essential (primary) hypertension SNOMED: 52650201 Assessment/Plan Bronchodilators Po sterids abxs cont Amlodipine discussed with RN Subjective Allergies: Coded Allergies: IODINE (Verified Allergy, Severe, ANAPHYLAXIS, 09/01/17) SHELLFISH DERIVED (Verified Allergy, Severe, Anaphylaxis, 09/01/17) Uncoded Allergies: Contrast Dye (Adverse Reaction, Severe, Anaphylaxis, 09/01/17) Subjective C/O BELCHER Objective Last 24 Hour Vital Signs Date Time Temp Pulse Resp B/P (MAP) Pulse Ox O2 Delivery O2 Flow Rate FiO2 09/06/17 12:00 97.6 75 20 130/86 98 Room Air 09/06/17 11:14 85 18 92 Room Air 09/06/17 11:07 82 18 92 Room Air 09/06/17 09:07 87 18 92 Room Air 09/06/17 09:03 87 130/79 09/06/17 08:59 Room Air 21 09/06/17 08:59 92 Room Air 09/06/17 08:55 87 18 92 Room Air 09/06/17 04:01 Room Air 09/06/17 04:00 97.5 78 18 130/79 92 09/06/17 03:14 77 18 96 Room Air 09/06/17 03:06 75 18 90 Room Air 09/05/17 23:46 74 18 97 Room Air 09/05/17 23:38 89 20 90 Room Air 09/05/17 20:01 Room Air 09/05/17 20:00 97.5 94 19 165/89 92 09/05/17 19:53 89 18 98 Room Air 09/05/17 19:49 Room Air 09/05/17 19:49 91 Room Air 09/05/17 19:48 87 18 91 Room Air 09/05/17 16:00 98.3 86 20 142/80 99 Room Air 09/05/17 15:08 88 18 91 Room Air 09/05/17 15:08 89 18 91 Room Air Intake and Output 09/05/17 09/06/17 19:00 07:00 Intake Total 960 ml 415 ml Balance 960 ml 415 ml Intake Oral 960 ml 360 ml IV Total 55 ml # Voids 2 3 # Bowel Movements 1 Height (Feet): 5 Height (Inches): 7.00 Weight (Pounds): 135 Cardiovascular: normal rate Respiratory/Chest: expiratory wheezing - better Edema: no edema noted Generalized BEE CONSTANTINO Sep 06, 2017 14:13
[2017-09-06 17:00] VITALS: BP 155/76
[2017-09-06] MEDS: Azithromycin 500 MG in D5W 275 ML IV SCH (18:18)
--- NOTE | 2017-09-06 18:26 | Pulmonology Progress Note ---
Assessment/Plan Assessment/Plan 1. Chronic obstructive pulmonary disease exacerbation. 2. Hypertension. 3. Hemoptysis. PO steroids no change today BP rx per Dr Dong improving abx check ra sat needs pft as out pt needs MDi upon dc dc plan Subjective Constitutional: Reports: no symptoms HEENT: Repors: dysphagia Respiratory: Reports: shortness of breath, wheezing Cardiovascular: Reports: no symptoms Gastrointestinal/Abdominal: Reports: no symptoms Genitourinary: Reports: no symptoms Neurologic: Reports: no symptoms Allergies: Coded Allergies: IODINE (Verified Allergy, Severe, ANAPHYLAXIS, 09/01/17) SHELLFISH DERIVED (Verified Allergy, Severe, Anaphylaxis, 09/01/17) Uncoded Allergies: Contrast Dye (Adverse Reaction, Severe, Anaphylaxis, 09/01/17) Subjective still with some sob on ra no distress oob and worse BELCHER apparent no fever tolerating po Objective Last 24 Hour Vital Signs Date Time Temp Pulse Resp B/P (MAP) Pulse Ox O2 Delivery O2 Flow Rate FiO2 09/06/17 17:00 98.5 89 22 155/76 93 Room Air 09/06/17 15:00 82 18 93 Room Air 09/06/17 14:53 80 18 93 Room Air 09/06/17 12:00 97.6 75 20 130/86 98 Room Air 09/06/17 11:14 85 18 92 Room Air 09/06/17 11:07 82 18 92 Room Air 09/06/17 09:07 87 18 92 Room Air 09/06/17 09:03 87 130/79 09/06/17 09:00 98.0 78 20 141/80 99 Room Air 09/06/17 08:59 Room Air 09/06/17 08:59 92 Room Air 09/06/17 08:55 87 18 92 Room Air 09/06/17 04:01 Room Air 09/06/17 04:00 97.5 78 18 130/79 92 09/06/17 03:14 77 18 96 Room Air 09/06/17 03:06 75 18 90 Room Air 09/05/17 23:46 74 18 97 Room Air 09/05/17 23:38 89 20 90 Room Air 09/05/17 20:01 Room Air 09/05/17 20:00 97.5 94 19 165/89 92 09/05/17 19:53 89 18 98 Room Air 09/05/17 19:49 Room Air 09/05/17 19:49 91 Room Air 09/05/17 19:48 87 18 91 Room Air 21 Intake and Output 09/05/17 09/06/17 19:00 07:00 Intake Total 960 ml 415 ml Balance 960 ml 415 ml Intake Oral 960 ml 360 ml IV Total 55 ml # Voids 2 3 # Bowel Movements 1 General Appearance: WD/WN Respiratory/Chest: rhonchi, expiratory wheezing Cardiovascular: normal rate, regular rhythm Abdomen: soft, non tender, no organomegaly Extremities: no clubbing Neurologic/Psychiatric: no motor/sensory deficits, oriented x 3 Lymphatic: no neck adenopathy Musculoskeletal: normal muscle bulk Current Medications Medications (Trade) Dose Ordered Sig/Heydi Route PRN Reason Start Time Stop Time Status Last Admin Dose Admin Acetaminophen (Tylenol) 650 mg Q4H PRN ORAL Mild Pain (Pain Scale 1-3) 09/03/17 18:00 10/01/17 21:59 Albuterol/ Ipratropium (Albuterol/ Ipratropium) 3 ml Q4HRT HHN 09/03/17 19:00 09/07/17 10:59 09/06/17 14:50 Amlodipine Besylate (Norvasc) 10 mg DAILY ORAL 09/06/17 09:00 10/06/17 08:59 09/06/17 09:03 Aspirin (Ecotrin) 81 mg DAILY ORAL 09/04/17 09:00 10/02/17 08:59 09/06/17 09:03 Azithromycin 500 mg/Dextrose 275 ml @ 275 mls/hr Q24H IV 09/03/17 18:00 09/09/17 17:59 09/06/17 18:18 Ceftriaxone Sodium 1 gm/ Dextrose 55 ml @ 110 mls/hr Q24H IV 09/03/17 23:00 09/08/17 22:59 09/05/17 23:15 Magnesium Hydroxide (Mom) 30 ml HSPRN PRN ORAL Constipation 09/03/17 22:00 10/01/17 21:59 Morphine Sulfate (Morphine Sulfate) 4 mg Q4H PRN IVP Severe Pain (Pain Scale 7-10) 09/03/17 18:00 09/08/17 21:59 Ondansetron HCl (Zofran) 4 mg Q6H PRN IVP Nausea & Vomiting 09/03/17 16:00 10/01/17 21:59 Prednisone (predniSONE) 20 mg Q12HR ORAL 09/04/17 21:00 10/04/17 20:59 09/06/17 09:03 Ranitidine HCl (Zantac) 150 mg TWICE A DAY ORAL 09/03/17 18:00 10/01/17 21:59 09/06/17 18:18 Zolpidem Tartrate (Ambien) 10 mg HSPRN PRN ORAL Insomnia 09/03/17 22:00 09/08/17 21:59 BOBBY LO DO Sep 06, 2017 18:26
[2017-09-06] MEDS: cefTRIAXone 1 GM in D5W 55 ML IV SCH (23:55)
[2017-09-07 01:00] VITALS: BP 153/93
[2017-09-07] MEDS: Albuterol/Ipratropium 3ml neb HHN SCH ×5 (02:53→23:10)
[2017-09-07 04:00] VITALS: BP 149/86
[2017-09-07 08:00] VITALS: BP 131/74
[2017-09-07] MEDS: Aspirin EC 81mg tab ORAL SCH (08:19)
[2017-09-07] MEDS ORDERED: NS 275ml ONE (10:14)
[2017-09-07] MEDS ORDERED: Tubing IV Secondary IV ONE (10:14)
--- NOTE | 2017-09-07 15:13 | Pulmonology Progress Note ---
Assessment/Plan Assessment/Plan 1. Chronic obstructive pulmonary disease exacerbation. 2. Hypertension. 3. Hemoptysis. PO steroids no change today, reassess in am BP rx per Dr Dong improving abx check ra sat, humidify o2 if needed needs pft as out pt needs MDi upon dc dc plan Subjective Constitutional: Reports: no symptoms HEENT: Repors: no symptoms Respiratory: Reports: productive cough Cardiovascular: Reports: no symptoms Gastrointestinal/Abdominal: Reports: no symptoms Genitourinary: Reports: no symptoms Allergies: Coded Allergies: IODINE (Verified Allergy, Severe, ANAPHYLAXIS, 09/01/17) SHELLFISH DERIVED (Verified Allergy, Severe, Anaphylaxis, 09/01/17) Uncoded Allergies: Contrast Dye (Adverse Reaction, Severe, Anaphylaxis, 09/01/17) Subjective still with some sob on nc afternoon, was on RA yesterday no distress oob and worse BELCHER apparent no fever tolerating po Objective Last 24 Hour Vital Signs Date Time Temp Pulse Resp B/P (MAP) Pulse Ox O2 Delivery O2 Flow Rate FiO2 09/07/17 15:05 86 22 91 Nasal Cannula 2.0 09/07/17 08:19 84 131/74 09/07/17 08:00 97.9 84 17 131/74 97 09/07/17 07:51 91 20 98 Room Air 21 09/07/17 07:42 Room Air 09/07/17 07:41 98 20 91 Room Air 21 09/07/17 07:41 91 Room Air 21 09/07/17 07:39 98 20 Room Air 21 09/07/17 04:00 97.9 85 20 149/86 95 09/07/17 03:02 75 22 95 Room Air 21 09/07/17 02:56 21 09/07/17 02:56 75 22 93 Room Air 21 09/07/17 02:53 75 22 93 Room Air 21 09/07/17 01:00 97.4 87 18 153/93 94 09/06/17 23:44 89 22 95 Room Air 21 09/06/17 23:43 21 09/06/17 23:42 89 22 95 Room Air 21 09/06/17 20:14 89 22 95 Nasal Cannula 2.0 28 09/06/17 20:06 89 22 95 Nasal Cannula 2.0 09/06/17 20:06 28 09/06/17 20:05 93 Nasal Cannula 2.0 28 09/06/17 20:05 Nasal Cannula 2.0 28 09/06/17 17:00 98.5 89 22 155/76 93 Room Air Intake and Output 09/06/17 09/07/17 19:00 07:00 Intake Total 3160 ml Balance 3160 ml Intake Oral 3160 ml # Voids 2 3 # Bowel Movements 1 1 General Appearance: cachetic Respiratory/Chest: rhonchi - scant Cardiovascular: normal rate, regular rhythm Abdomen: soft, non tender, no organomegaly Skin: no lesions 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 normal, alert, oriented x 3 Current Medications Medications (Trade) Dose Ordered Sig/Heydi Route PRN Reason Start Time Stop Time Status Last Admin Dose Admin Acetaminophen (Tylenol) 650 mg Q4H PRN ORAL Mild Pain (Pain Scale 1-3) 09/03/17 18:00 10/01/17 21:59 Albuterol/ Ipratropium (Albuterol/ Ipratropium) 3 ml Q4HRT HHN 09/07/17 15:00 09/12/17 14:59 09/07/17 15:05 Amlodipine Besylate (Norvasc) 10 mg DAILY ORAL 09/06/17 09:00 10/06/17 08:59 09/07/17 08:19 Aspirin (Ecotrin) 81 mg DAILY ORAL 09/04/17 09:00 10/02/17 08:59 09/07/17 08:19 Azithromycin 500 mg/Dextrose 275 ml @ 275 mls/hr Q24H IV 09/03/17 18:00 09/09/17 17:59 09/06/17 18:18 Ceftriaxone Sodium 1 gm/ Dextrose 55 ml @ 110 mls/hr Q24H IV 09/03/17 23:00 09/08/17 22:59 09/06/17 23:55 Magnesium Hydroxide (Mom) 30 ml HSPRN PRN ORAL Constipation 09/03/17 22:00 10/01/17 21:59 Morphine Sulfate (Morphine Sulfate) 4 mg Q4H PRN IVP Severe Pain (Pain Scale 7-10) 09/03/17 18:00 09/08/17 21:59 Ondansetron HCl (Zofran) 4 mg Q6H PRN IVP Nausea & Vomiting 09/03/17 16:00 10/01/17 21:59 Prednisone (predniSONE) 20 mg Q12HR ORAL 09/04/17 21:00 10/04/17 20:59 09/07/17 08:19 Ranitidine HCl (Zantac) 150 mg TWICE A DAY ORAL 09/03/17 18:00 10/01/17 21:59 09/07/17 08:19 Zolpidem Tartrate (Ambien) 10 mg HSPRN PRN ORAL Insomnia 09/03/17 22:00 09/08/17 21:59 Current Medications Medications (Trade) Dose Ordered Sig/Heydi Route PRN Reason Start Time Stop Time Status Last Admin Dose Admin Acetaminophen (Tylenol) 650 mg Q4H PRN ORAL Mild Pain (Pain Scale 1-3) 09/03/17 18:00 10/01/17 21:59 Albuterol/ Ipratropium (Albuterol/ Ipratropium) 3 ml Q4HRT HHN 09/07/17 15:00 09/12/17 14:59 09/07/17 15:05 Amlodipine Besylate (Norvasc) 10 mg DAILY ORAL 09/06/17 09:00 10/06/17 08:59 09/07/17 08:19 Aspirin (Ecotrin) 81 mg DAILY ORAL 09/04/17 09:00 10/02/17 08:59 09/07/17 08:19 Azithromycin 500 mg/Dextrose 275 ml @ 275 mls/hr Q24H IV 09/03/17 18:00 09/09/17 17:59 09/06/17 18:18 Ceftriaxone Sodium 1 gm/ Dextrose 55 ml @ 110 mls/hr Q24H IV 09/03/17 23:00 09/08/17 22:59 09/06/17 23:55 Magnesium Hydroxide (Mom) 30 ml HSPRN PRN ORAL Constipation 09/03/17 22:00 10/01/17 21:59 Morphine Sulfate (Morphine Sulfate) 4 mg Q4H PRN IVP Severe Pain (Pain Scale 7-10) 09/03/17 18:00 09/08/17 21:59 Ondansetron HCl (Zofran) 4 mg Q6H PRN IVP Nausea & Vomiting 09/03/17 16:00 10/01/17 21:59 Prednisone (predniSONE) 20 mg Q12HR ORAL 09/04/17 21:00 10/04/17 20:59 09/07/17 08:19 Ranitidine HCl (Zantac) 150 mg TWICE A DAY ORAL 09/03/17 18:00 10/01/17 21:59 09/07/17 08:19 Zolpidem Tartrate (Ambien) 10 mg HSPRN PRN ORAL Insomnia 09/03/17 22:00 09/08/17 21:59 BOBBY LO DO Sep 07, 2017 15:13
[2017-09-07 16:00] VITALS: BP 153/84
[2017-09-07] MEDS: Azithromycin 500 MG in D5W 275 ML IV SCH (17:08)
--- NOTE | 2017-09-07 18:56 | General Progress Note ---
Assessment/Plan Problem List: (1) Acute respiratory failure with hypoxemia ICD Codes: J96.01 - Acute respiratory failure with hypoxia SNOMED: 172449945 (2) COPD exacerbation ICD Codes: J44.1 - Chronic obstructive pulmonary disease with (acute) exacerbation SNOMED: 457562761718289 (3) HTN (hypertension) ICD Codes: I10 - Essential (primary) hypertension SNOMED: 22601321 Assessment/Plan Bronchodilators Po sterids abxs cont Amlodipine Subjective Allergies: Coded Allergies: IODINE (Verified Allergy, Severe, ANAPHYLAXIS, 09/01/17) SHELLFISH DERIVED (Verified Allergy, Severe, Anaphylaxis, 09/01/17) Uncoded Allergies: Contrast Dye (Adverse Reaction, Severe, Anaphylaxis, 09/01/17) Subjective C/O BELCHER Objective Last 24 Hour Vital Signs Date Time Temp Pulse Resp B/P (MAP) Pulse Ox O2 Delivery O2 Flow Rate FiO2 09/07/17 16:00 97.3 81 19 153/84 97 09/07/17 15:16 76 20 95 Room Air 21 09/07/17 15:05 86 22 91 Nasal Cannula 2.0 09/07/17 08:19 84 131/74 09/07/17 08:00 97.9 84 17 131/74 97 09/07/17 07:51 91 20 98 Room Air 21 09/07/17 07:42 Room Air 09/07/17 07:41 98 20 91 Room Air 21 09/07/17 07:41 91 Room Air 21 09/07/17 07:39 98 20 Room Air 21 09/07/17 04:00 97.9 85 20 149/86 95 09/07/17 03:02 75 22 95 Room Air 21 09/07/17 02:56 21 09/07/17 02:56 75 22 93 Room Air 21 09/07/17 02:53 75 22 93 Room Air 21 09/07/17 01:00 97.4 87 18 153/93 94 09/06/17 23:44 89 22 95 Room Air 21 09/06/17 23:43 21 09/06/17 23:42 89 22 95 Room Air 21 09/06/17 20:14 89 22 95 Nasal Cannula 2.0 28 09/06/17 20:06 89 22 95 Nasal Cannula 2.0 28 09/06/17 20:06 28 09/06/17 20:05 93 Nasal Cannula 2.0 28 09/06/17 20:05 Nasal Cannula 2.0 28 Intake and Output 09/06/17 09/07/17 19:00 07:00 Intake Total 3160 ml Balance 3160 ml Intake Oral 3160 ml # Voids 2 3 # Bowel Movements 1 1 Height (Feet): 5 Height (Inches): 7.00 Weight (Pounds): 135 Cardiovascular: normal rate Respiratory/Chest: expiratory wheezing - less Edema: no edema noted Generalized BEE CONSTANTINO Sep 07, 2017 18:56
[2017-09-07] MEDS: cefTRIAXone 1 GM in D5W 55 ML IV SCH (21:41)
[2017-09-08 01:00] VITALS: BP 138/75
[2017-09-08] MEDS: Albuterol/Ipratropium 3ml neb HHN SCH ×4 (03:00→15:00)
[2017-09-08 08:20] VITALS: BP 137/78
[2017-09-08] MEDS: Aspirin EC 81mg tab ORAL SCH (08:37)
--- NOTE | 2017-09-08 11:28 | Pulmonology Progress Note ---
Assessment/Plan Assessment/Plan 1. Chronic obstructive pulmonary disease exacerbation. 2. Hypertension. 3. Hemoptysis. BP controlled PO steroids improving dc plan per Dr Gore Subjective Respiratory: Reports: dry cough, Denies: shortness of breath Allergies: Coded Allergies: IODINE (Verified Allergy, Severe, ANAPHYLAXIS, 09/01/17) SHELLFISH DERIVED (Verified Allergy, Severe, Anaphylaxis, 09/01/17) Uncoded Allergies: Contrast Dye (Adverse Reaction, Severe, Anaphylaxis, 09/01/17) Objective Last 24 Hour Vital Signs Date Time Temp Pulse Resp B/P (MAP) Pulse Ox O2 Delivery O2 Flow Rate FiO2 09/08/17 11:20 81 20 99 Room Air 21 09/08/17 11:12 75 18 95 Room Air 09/08/17 08:37 78 137/74 09/08/17 07:21 79 20 99 Room Air 09/08/17 07:17 Room Air 21 09/08/17 07:16 92 Room Air 09/08/17 07:14 81 20 92 Room Air 09/08/17 04:14 81 20 97 Room Air 21 09/08/17 04:04 67 21 91 Room Air 21 09/08/17 01:00 98.1 78 18 138/75 95 09/07/17 23:21 67 20 97 Room Air 09/07/17 23:11 73 20 91 Room Air 09/07/17 19:36 73 20 96 Room Air 09/07/17 19:28 79 20 93 Room Air 21 09/07/17 19:27 93 Room Air 09/07/17 19:27 Room Air 09/07/17 16:00 97.3 81 19 153/84 97 09/07/17 15:16 76 20 95 Room Air 09/07/17 15:05 86 22 91 Nasal Cannula 2.0 Intake and Output 09/07/17 09/08/17 19:00 07:00 Intake Total 540 ml 240 ml Balance 540 ml 240 ml Intake Oral 540 ml 240 ml # Voids 2 1 # Bowel Movements 1 General Appearance: no acute distress Respiratory/Chest: lungs clear, decreased breath sounds Cardiovascular: normal rate Current Medications Medications (Trade) Dose Ordered Sig/Heydi Route PRN Reason Start Time Stop Time Status Last Admin Dose Admin Acetaminophen (Tylenol) 650 mg Q4H PRN ORAL Mild Pain (Pain Scale 1-3) 09/03/17 18:00 10/01/17 21:59 Albuterol/ Ipratropium (Albuterol/ Ipratropium) 3 ml Q4HRT HHN 09/07/17 15:00 09/12/17 14:59 09/08/17 11:12 Amlodipine Besylate (Norvasc) 10 mg DAILY ORAL 09/06/17 09:00 10/06/17 08:59 09/08/17 08:37 Aspirin (Ecotrin) 81 mg DAILY ORAL 09/04/17 09:00 10/02/17 08:59 09/08/17 08:37 Azithromycin 500 mg/Dextrose 275 ml @ 275 mls/hr Q24H IV 09/03/17 18:00 09/09/17 17:59 09/07/17 17:08 Ceftriaxone Sodium 1 gm/ Dextrose 55 ml @ 110 mls/hr Q24H IV 09/03/17 23:00 09/08/17 22:59 09/07/17 21:41 Magnesium Hydroxide (Mom) 30 ml HSPRN PRN ORAL Constipation 09/03/17 22:00 10/01/17 21:59 Morphine Sulfate (Morphine Sulfate) 4 mg Q4H PRN IVP Severe Pain (Pain Scale 7-10) 09/03/17 18:00 09/08/17 21:59 Ondansetron HCl (Zofran) 4 mg Q6H PRN IVP Nausea & Vomiting 09/03/17 16:00 10/01/17 21:59 Prednisone (predniSONE) 20 mg Q12HR ORAL 09/04/17 21:00 10/04/17 20:59 09/08/17 08:37 Ranitidine HCl (Zantac) 150 mg TWICE A DAY ORAL 09/03/17 18:00 10/01/17 21:59 09/08/17 08:37 Zolpidem Tartrate (Ambien) 10 mg HSPRN PRN ORAL Insomnia 09/03/17 22:00 09/08/17 21:59 LAKEISHA MARADIAGA Sep 08, 2017 11:28
[2017-09-08 12:00] VITALS: BP 157/94
[2017-09-08] MEDS ORDERED: NORVASC10 MG ORAL (13:55)
[2017-09-08] MEDS ORDERED: DUONEB 0.5-3(2.53 ML HHN ×2 (13:55→14:11)
[2017-09-08] MEDS ORDERED: PREDNISONE20 MG ORAL ×2 (13:55→14:11)
--- NOTE | 2017-09-08 14:01 | Consultation ---
Consult Note Assessment/Plan Dc dictated # [id number] BEE CONSTANTINO Sep 08, 2017 14:01
[2017-09-08] MEDS ORDERED: ASPIR 8181 MG ORAL (14:11)
[2017-09-08] MEDS ORDERED: AMLODIPINE BESY10 MG ORAL (14:11)
[2017-09-08] MEDS ORDERED: ASPIRIN EC81 MG ORAL (14:11)
--- NOTE | 2017-09-08 21:00 | Discharge Summary ---
DATE OF ADMISSION: 09/01/2017 DATE OF DISCHARGE: 09/08/2017 CHIEF COMPLAINT: Shortness of breath, cough, and sputum production. HISTORY OF PRESENT ILLNESS: This is a 67-year-old white male with history of COPD/emphysema, was admitted with above symptoms. The patient was diagnosed with COPD exacerbation as well as acute bronchitis. HOSPITAL COURSE: The patient was started on IV antibiotics, bronchodilators, IV steroids, oxygen, and he was seen by Dr. Liriano in Pulmonary consultation. Eventually, hiis IV steroids were discontinued. He was started on oral prednisone. He still had some wheezing until day of discharge when he finally improved to the degree that we were able to send him home. The patient was also found to have high blood pressure and was started on amlodipine, which was increased to 10 mg daily during his hospital course. DISCHARGE DIAGNOSES: 1. Chronic obstructive pulmonary disease exacerbation. 2. Acute bronchitis. 3. Hypertension. DISCHARGE MEDICATIONS: Please refer to discharge medication list. FOLLOWUP: The patient was asked to come to my office for followup. DIET: Regular. Roney Gore M.D. DR: Camila JOB#: [id number] CC: TAWANA
== END 2017-09-08 14:50 | disposition home or self-care (01) | DRG 190 ==
LOC: EDBD 17:11 → EMR 18:22 → 2E 18:30 → EDBEDREQ 20:44 → 3E 09-03 16:42
DX: J44.1 Chronic obstructive pulmonary disease with (acute) exacerbation (principal); J96.01 Acute respiratory failure with hypoxia; R04.2 Hemoptysis; Z91.041 Radiographic dye allergy status; J20.9 Acute bronchitis, unspecified; Z87.891 Personal history of nicotine dependence; I10 Essential (primary) hypertension
CPT/HCPCS: 36415; 36600; 71010; 71250; 80053; 81003; 82803; 83605; 83880; 84484; 85025; 87040; 93005; 94640; 94664; 94760; J7620